=== PATIENT | female | born 1965 | race Two or more races ===

== ENCOUNTER 2019-05-08 14:48 | Emergency (ER) | payer SELFPAY ==
[~2019-05-08] VITALS: Ht 154.9 cm; Wt 76.0 kg
[2019-05-08] MEDS ORDERED: ASPIRIN CHEWABLE 81 MG TABLET. PO ONE (15:15)
[2019-05-08] MEDS ORDERED: NITROGLYCERIN SUBLINGUAL 0.4 MG BOTTLE OF 25. SL PRN (15:15)
--- NOTE | 2019-05-08 15:23 | PHYS DOC ---
Past Medical History Past Medical History: Hypertension Additional Past Medical Histor: POLIO Past Surgical History: No Surgical History Adult General Chief Complaint Chief Complaint: CHEST PAIN HPI HPI Patient is a 53 year old Urdu speaking female with history of hypertension and polio who presents with complaint of chest pain. History was taking via translating service line. Patient flew from [place] in late March without any problem. Patient complaining of constant left-sided chest pain for the last3 days as a sharp pain with radiation to left arm and her back and rated her pain 6/10. Patient complaining of intermittent episodes of shortness of breath and denies palpitation, nausea and vomiting, fever and chills, cough and congestion, history of the same problem. Patient denies change of pain with any taking and didn't take any medication for her pain. Review of Systems Review of Systems Constitutional: Denies fever or chills [] Eyes: Denies change in visual acuity, redness, or eye pain [] HENT: Denies nasal congestion or sore throat [] Respiratory: Denies cough, reports shortness of breath [] Cardiovascular: No additional information not addressed in HPI [] GI: Denies abdominal pain, nausea, vomiting, bloody stools or diarrhea [] : Denies dysuria or hematuria [] Musculoskeletal: Denies back pain or joint pain [] Integument: Denies rash or skin lesions [] Neurologic: Denies headache, focal weakness or sensory changes [] Endocrine: Denies polyuria or polydipsia [] All other systems were reviewed and found to be within normal limits, except as documented in this note. Current Medications Current Medications Current Medications Medications (Trade) Dose Ordered Sig/Mely Start Time Stop Time Status Last Admin Dose Admin Aspirin (Children'S Aspirin) 324 mg 1X ONCE 05/08/19 15:15 05/08/19 15:27 DC 05/08/19 15:27 324 MG Lorazepam (Ativan Inj) 1 mg 1X ONCE 05/08/19 16:00 05/08/19 16:01 DC 05/08/19 16:01 1 MG Nitroglycerin (Nitrostat) 0.4 mg PRN Q5MIN PRN 05/08/19 15:15 05/09/19 15:14 05/08/19 15:28 0.4 MG Allergies Allergies Allergies Coded Allergies Type Severity Reaction Last Updated Verified dipyrone Allergy Intermediate 05/08/19 Yes Uncoded Allergies Type Severity Reaction Last Updated Verified METAMIZOL Allergy Unknown 05/08/19 Physical Exam Physical Exam C Constitutional: Well developed, well nourished, mild distress, non-toxic appearance. [] HENT: Normocephalic, atraumatic. Eyes: PERRLA, EOMI, conjunctiva normal, no discharge. [] Neck: Normal range of motion, no tenderness, supple, no stridor. [] Cardiovascular: Tachycardia, no murmur [] Lungs & Thorax: Bilateral breath sounds clear to auscultation [] Abdomen: Bowel sounds normal, soft, no tenderness, no masses, no pulsatile masses. [] Skin: Warm, dry, no erythema, no rash. [] Back: No tenderness, no CVA tenderness. [] Extremities: No tenderness, no cyanosis, no clubbing, lower extremity weakness related to polio,no edema. [] Neurologic: Alert and oriented X 3, no focal deficits noted. [] Current Patient Data Vital Signs Vital Signs Date Time Temp Pulse Resp B/P (MAP) Pulse Ox O2 Delivery O2 Flow Rate FiO2 05/08/19 15:28 102 152/74 05/08/19 14:50 98.7 18 97 98.7 Lab Values Laboratory Tests Test 05/08/19 15:15 White Blood Count 11.0 x10^3/uL (4.0-11.0) Red Blood Count 4.82 x10^6/uL (3.50-5.40) Hemoglobin 14.6 g/dL (12.0-15.5) Hematocrit 43.2 % (36.0-47.0) Mean Corpuscular Volume 90 fL (79-100) Mean Corpuscular Hemoglobin 30 pg (25-35) Mean Corpuscular Hemoglobin Concent 34 g/dL (31-37) Red Cell Distribution Width 14.3 % (11.5-14.5) Platelet Count 333 x10^3/uL (140-400) Neutrophils (%) (Auto) 46 % (31-73) Lymphocytes (%) (Auto) 41 % (24-48) Monocytes (%) (Auto) 10 % (0-9) H Eosinophils (%) (Auto) 3 % (0-3) Basophils (%) (Auto) 1 % (0-3) Neutrophils # (Auto) 5.1 x10^3/uL (1.8-7.7) Lymphocytes # (Auto) 4.5 x10^3/uL (1.0-4.8) Monocytes # (Auto) 1.1 x10^3/uL (0.0-1.1) Eosinophils # (Auto) 0.3 x10^3/uL (0.0-0.7) Basophils # (Auto) 0.1 x10^3/uL (0.0-0.2) Prothrombin Time 12.6 SEC (11.7-14.0) Prothrombin Time INR 1.0 (0.8-1.1) D-Dimer (Elizabeth) 0.42 ug/mlFEU (0.00-0.50) Sodium Level 141 mmol/L (136-145) Potassium Level 3.6 mmol/L (3.5-5.1) Chloride Level 103 mmol/L (98-107) Carbon Dioxide Level 30 mmol/L (21-32) Anion Gap 8 (6-14) Blood Urea Nitrogen 13 mg/dL (7-20) Creatinine 0.4 mg/dL (0.6-1.0) L Estimated GFR (Cockcroft-Gault) 167.6 BUN/Creatinine Ratio 33 (6-20) H Glucose Level 131 mg/dL (70-99) H Calcium Level 9.3 mg/dL (8.5-10.1) Magnesium Level 2.2 mg/dL (1.8-2.4) Total Bilirubin 0.2 mg/dL (0.2-1.0) Aspartate Amino Transferase (AST) 17 U/L (15-37) Alanine Aminotransferase (ALT) 40 U/L (14-59) Alkaline Phosphatase 110 U/L (46-116) Creatine Kinase 156 U/L (26-192) Troponin I Quantitative < 0.017 ng/mL (0.000-0.055) JF-Tho-X-Type Natriuretic Peptide 5 pg/mL (0-124) Total Protein 7.2 g/dL (6.4-8.2) Albumin 3.6 g/dL (3.4-5.0) Albumin/Globulin Ratio 1.0 (1.0-1.7) Lipase 169 U/L (73-393) Laboratory Tests 05/08/19 15:15 Laboratory Tests 05/08/19 15:15 EKG EKG EKG interpreted by me. EKG at 1456 showed sinus tachycardia at rate of 116,QRS, poor R-wave progress in anteroseptal leads, normal VT and QT intervals, mild artifact, no acute ST-T wave elevation. Radiology/Procedures Radiology/Procedures [facility] [address] [place] [address] IMAGING REPORT Signed PATIENT: SAVAGE JUAN ACCOUNT: [id number] : 1965 LOCATION: ER AGE: 53 SEX: F EXAM STATUS: REG ER ORD. PHYSICIAN: WYATT DE LA TORRE MD REASON: chest pain PROCEDURE: PORTABLE CHEST 1V PORTABLE CHEST 1V History: Chest pain Comparison: None. Findings: Single view of the chest is submitted. There is no infiltrate, pneumothorax, or effusion. The pericardial cardiac silhouette is within normal limits in size. Impression: 1. There is no radiographic evidence of acute cardiopulmonary disease. Electronically signed by: Arnol Montelongo MD (05/08/2019 4:20 PM) [facility] DICTATED and SIGNED BY: ARNOL MONTELONGO MD DATE: 05/08/191619 Course & Med Decision Making Course & Med Decision Making Pertinent Labs and Imaging studies reviewed. (See chart for details) Evaluation of patient in ER showed 53-year-old female patient with complaining of left-sided chest pain for the last 3 days as a constant pain. Patient had reproducible chest wall pain and unremarkable d-dimer, cardiac enzyme, CBC and CMP and chest x-ray. Patient treated with IV fluid and Ativan with improvement of her condition. Patient was advised to continue her home medication and follow up with primary care physician.discharge: I've spoken with the patient and/or caregivers. I've explained the patient's condition, diagnosis and treatment plan based on information available to me at this time. I've answered the patient's and/or caregivers questions and addressed any concerns. The patient and/or caregivers have a good understanding the patient's diagnosis, condition and treatment plan as can be expected at this point. Vital signs have been stabilized. The patient's condition is stable for discharge from the emergency department. The patient will pursue further outpatient evaluation with her primary care provider or other designated consulting physician as outlined in the discharge instructions. Patient and/or caregivers are agreeable to this plan of care and follow-up instructions have been explained in detail. The patient and/or caregivers have received these instructions in written format and expressed understanding of these discharge instructions. The patient and her caregivers are aware that if any significant change in condition or worsening of symptoms should prompt him to immediately return to this of the closest emergency department. If an emergent department is not readily available I would encourage him to call 911. Dragon Disclaimer Dragon Disclaimer This electronic medical record was generated, in whole or in part, using a voice recognition dictation system. Departure Departure Impression: Primary Impression: Chest wall pain Additional Impression: Anxiety about health Disposition: HOME, SELF-CARE (at 1638) Condition: IMPROVED Patient Instructions: Chest Wall Pain, How to Take Your Blood Pressure, [id number], Managing Your High Blood Pressure Additional Instructions: Drink plenty of liquids Follow-up with your primary care physician in 3-5 days Return to ER if not getting better Continue current medication Thank you for visiting [facility]. We appreciate you trusting us with your care. If any additional problems come up don't hesitate to return to visit us. Please follow up with your primary care provider so they can plan additional care if needed and know about the problem that you had. If symptoms worsen come back to the Emergency Department. Any concerning symptoms that start such as chest pain, shortness of air, weakness or numbness on one side of the body, running high fevers or any other concerning symptoms return to the ER. Scripts Naproxen (NAPROSYN) 500 Mg Tablet 1 TAB PO BID for pain, #20 TAB Prov: WYATT DE LA TORRE MD 05/08/19 Problem Qualifiers WYATT DE LA TORRE MD May 08, 2019 15:23
[2019-05-08 15:25] LABS: BASO # 0.1 x10^3/uL (0.0-0.2); BASO % 1 % (0-3); EOS # 0.3 x10^3/uL (0.0-0.7); EOS % 3 % (0-3); HEMATOCRIT 43.2 % (36.0-47.0); HEMOGLOBIN 14.6 g/dL (12.0-15.5); LYMPH # 4.5 x10^3/uL (1.0-4.8); LYMPH % 41 % (24-48); MEAN CORPUSCULAR HEMOGLOBIN 30 pg (25-35); MEAN CORPUSCULAR HGB CONC 34 g/dL (31-37); MEAN CORPUSCULAR VOLUME 90 fL (79-100); MONO # 1.1 x10^3/uL (0.0-1.1); MONO % 10 % (0-9); NEUT # 5.1 x10^3/uL (1.8-7.7); NEUT % 46 % (31-73); PLATELET COUNT 333 x10^3/uL (140-400); RED BLOOD COUNT 4.82 x10^6/uL (3.50-5.40); RED CELL DISTRIBUTION WIDTH 14.3 % (11.5-14.5)
[2019-05-08 15:34] LABS: CALCIUM 9.3 mg/dL (8.5-10.1); CREATININE 0.4 mg/dL (0.6-1.0); GFR 167.6; POTASSIUM 3.6 mmol/L (3.5-5.1); PROTHROMBIN TIME PATIENT 12.6 SEC (11.7-14.0)
[2019-05-08 15:37] LABS: D-DIMER 0.42 ug/mlFEU (0.00-0.50)
[2019-05-08 15:40] LABS: ALBUMIN 3.6 g/dL (3.4-5.0); MAGNESIUM 2.2 mg/dL (1.8-2.4); TOTAL BILIRUBIN 0.2 mg/dL (0.2-1.0); TOTAL PROTEIN 7.2 g/dL (6.4-8.2)
--- NOTE | 2019-05-08 16:24 | RAD ---
PORTABLE CHEST 1V History: Chest pain Comparison: None. Findings: Single view of the chest is submitted. There is no infiltrate, pneumothorax, or effusion. The pericardial cardiac silhouette is within normal limits in size. Impression: 1. There is no radiographic evidence of acute cardiopulmonary disease. Electronically signed by: Estuardo Guerrero MD (05/08/2019 4:20 PM) [facility]
[2019-05-08 16:42] VITALS: BP 110/64
[2019-05-08] MEDS ORDERED: NAPR-683 PO (16:48)
--- NOTE | 2019-05-08 16:58 | EKG ---
[facility] [address] [place] [address] Test Date: 2019-05-08 Test Time: 14:56:54 Pat Name: SAVAGE JUAN Department: Room: Gender: F [employer]: : 1965 Requested By: WYATT DE LA TORRE Order Number: [id number] Reading MD: Measurements Intervals [place] Rate: 116 P: -27 [place]: 128 QRS: 2 QRSD: 76 T: 38 QT: 314 QTc: 442 Interpretive Statements SINUS TACHYCARDIA LOW LIMB LEAD VOLTAGE QRS(T) CONTOUR ABNORMALITY CONSIDER ANTEROSEPTAL MYOCARDIAL DAMAGE POSSIBLY ABNORMAL ECG No previous ECG available for comparison
== END 2019-05-08 17:03 | disposition home or self-care (01) ==
LOC: ER 14:48
DX: R07.89 Other chest pain (principal); R06.02 Shortness of breath; F41.1 Generalized anxiety disorder; I10 Essential (primary) hypertension; Z86.12 Personal history of poliomyelitis; Z79.82 Long term (current) use of aspirin; Z88.6 Allergy status to analgesic agent; Z88.8 Allergy status to other drugs, medicaments and biological substances
CPT/HCPCS: 36415; 71045; 80053; 82550; 83690; 83735; 83880; 84484; 85025; 85379; 85610; 93005; 96374; 99285; J2060